=== PATIENT | female | born 1975 | race Caucasian/White ===

== ENCOUNTER 2018-09-14 12:13 | Emergency (ER) | payer OTHER ==
[2018-09-14 12:27] VITALS: BP 132/88
--- NOTE | 2018-09-14 13:19 | UC ---
Respiratory Complaint HPI - HPI Summary HPI Summary: 43 y/o female presents to the urgent care c/o nasal congestion, yellowish nasal discharge, w/ moderate +PND and a dry cough for the past week. For the past 2 days w/ a lot of sinus pain and B/L ear pressure. Pain is 5/10. She has been taking OTC Robitussin PO to alleviate cough. Pt has low grade fever the first day of symptoms which has now resolved. Pt denies SOB, wheezing, abdominal pain , N/V/D, dizziness, body aches, MEZA. - History of Current Complaint Chief Complaint: UCRespiratory Stated Complaint: RESP ISSUE Time Seen by Provider: 09/14/18 13:19 Hx Obtained From: Patient Hx Last Menstrual Period: 08/28/18 Onset/Duration: Gradual Onset, Lasting Weeks - 1 week, Still Present, Worse Since Severity Currently: Moderate Pain Intensity: 5 - sinus pain Character: Cough: Nonproductive Aggravating Factors: Recumbent Position Alleviating Factors: OTC Meds Associated Signs And Symptoms: Positive: Fever - first day of symptoms, URI, Nasal Congestion, Sinus Discomfort. Negative: Wheezing - Risk Factors Pulmonary Embolism Risk Factors: Negative Cardiac Risk Factors: Negative Pseudomonas Risk Factors: Negative Tuberculosis Risk Factors: Negative - Allergies/Home Medications Allergies/Adverse Reactions: Allergies Allergy/AdvReac Type Severity Reaction Status Date / Time bee venom protein (honey bee) Allergy Swelling Verified 09/14/18 12:27 PMH/Surg Hx/FS Hx/Imm Hx Previously Healthy: Yes - Pt denies PMHX - Surgical History Surgical History: Yes Surgery Procedure, Year, and Place: left foot repair after a broken bone - Family History Known Family History: Positive: Diabetes - Social History Occupation: Employed Full-time Lives: With Family Alcohol Use: Weekly Substance Use Type: None Smoking Status (MU): Never Smoked Tobacco Review of Systems All Other Systems Reviewed And Are Negative: Yes Constitutional: Positive: Negative Skin: Positive: Negative Eyes: Positive: Negative ENT: Positive: Ear Ache - B/L ear pressure, Nasal Discharge - yellowish, Sinus Congestion, Sinus Pain/Tenderness, Other - +yellowish PND Respiratory: Positive: Cough - dry Cardiovascular: Positive: Negative Gastrointestinal: Positive: Negative Genitourinary: Positive: Negative Motor: Positive: Negative Neurovascular: Positive: Negative Musculoskeletal: Positive: Negative Neurological: Positive: Negative Psychological: Positive: Negative Is Patient Immunocompromised?: No Physical Exam - Summary Physical Exam Summary: Vitals: reviewed General: Well developed, well-nourished female patient with NAD. Head and face: Normocephalic and atraumatic, Positive tenderness over the frontal and maxillary sinuses.. Eyes: PERRLA, EOMI x 2. Normal conjunctiva. No eye discharge. ENT: Ears and TM with normal limits. Nose: edematous and erythematous nasal mucosa with with yellowish discharge and erythematous mucosa. Pharynx with erythema, no exudate. +yellowish PND Neck: Supple, no JVD, no carotid bruits and no lymphadenopathy. Lungs: clear, no rales, no rhonchi, no wheezes. CVS: RRR, S1 and S2 present no murmurs or gallops appreciated. Abdomen: soft nontender with positive bowel sounds. Extremities: no edema noted. Neuro: WNL. Skin: warm and dry Triage Information Reviewed: Yes Vital Signs: Initial Vital Signs Temp 98.2 F 09/14/18 12:24 Pulse 69 09/14/18 12:24 Resp 18 09/14/18 12:24 BP 132/88 09/14/18 12:24 Pulse Ox 100 09/14/18 12:24 UC Diagnostic Evaluation - Laboratory O2 Sat by Pulse Oximetry: 100 Respiratory Course/Dx - Course Course Of Treatment: 43 y/o female presents to the urgent care c/o nasal congestion, yellowish nasal discharge, w/ moderate +PND and a dry cough for the past week. For the past 2 days w/ a lot of sinus pain and B/L ear pressure. Pain is 5/10. She has been taking OTC Robitussin PO to alleviate cough. Pt has low grade fever the first day of symptoms which has now resolved. Pt denies SOB , wheezing, abdominal pain, N/V/D, dizziness, body aches, MEZA. Hx obtained. Pt w / Bacterial sinusitis on examination. Influenza A&B=negative. Pt with 2 weeks of symptoms getting worse. Pt Rx Augmentin PO and flonase nasal spray. Advised to take Delsym PO for cough. Discharge instructions explained to Pt. Advised to Return to the clinic or PCP if symptoms do not improve.Pt understood and agreed with plan of care. - Differential Dx/Diagnosis Differential Diagnosis/HQI/PQRI: Bronchitis, Influenza, Lower Resp Infection, Sinusitis Provider Diagnosis: Acute bacterial sinusitis, Cough Discharge - Sign-Out/Discharge Documenting (check all that apply): Patient Departure - D/C home All imaging exams completed and their final reports reviewed: No Studies - Discharge Plan Condition: Stable Disposition: HOME Prescriptions: Amoxicillin/Clavulanate TAB* [Augmentin TAB 875*] 875 mg PO BID #20 tab Fluticasone NASAL SPRAY 50MCG* [Flonase NASAL SPRAY 50MCG*] 2 spray BOTH NARES DAILY #1 btl Patient Education Materials: Sinusitis (ED) Referrals: Marilia Manrique MD [Primary Care Provider] - 3 Days Additional Instructions: 1- Please increase fluid intake and rest. take full course of antibiotic to avoid resistance. Increase fluid intake, rest and eat well 2-Use Flonase as directed to help drain fluid. Also buy saline drops to clear sinuses 3-Please take Delsym PO to alleviate cough 4-Return to the clinic or PCP in 3 days if symptoms do not improve for further management and treatment - Billing Disposition and Condition Condition: STABLE Disposition: Home
== END 2018-09-14 14:10 | disposition home or self-care (01) ==
LOC: UCEAST 12:13
DX: B96.89 Other specified bacterial agents as the cause of diseases classified elsewhere (principal); R05 Cough; J01.90 Acute sinusitis, unspecified
CPT/HCPCS: 99212; G0463